=== PATIENT | male | born 1970 | race Caucasian/White ===

== ENCOUNTER 2019-04-21 05:16 | Day surgery (SDC) | payer OTHER ==
[~2019-04-21] VITALS: Ht 172.7 cm; Wt 73.0 kg
[2019-04-21 06:54] LABS: BASOPHILS 0.4 % (0-2); HEMOGLOBIN 13.5 g/dL (13.5-17.5); IMMATURE GRANULOCYTES 0.4 % (0-5); LYMPHOCYTES 34.5 % (15-50); MCH 29.7 pg (26.0-34.0); MCHC 34.6 g/dL (31.0-37.0); MCV 85.7 fL (80.0-100.0); MEAN PLATELET VOLUME 9.9 fL (7.4-10.4); MONOCYTES 10.8 % (2-11); NEUTROPHILS 51.9 % (40-80); PLATELET COUNT 156 10x3/uL (130-400); RBC 4.55 10x6/uL (4.20-6.10); RDW 12.9 % (11.5-14.5); WBC 5.1 10x3/uL (4.8-10.8)
[2019-04-21 07:05] LABS: ALBUMIN 3.7 g/dL (3.4-5.0); ALKALINE PHOSPHATASE 65 U/L (46-116); ALT (SGPT) 33 U/L (10-68); BILIRUBIN - TOTAL 0.53 mg/dL (0.2-1.3); CALC OSMOLALITY 283 mosm/kg (275-300); CALCIUM 8.9 mg/dL (8.5-10.1); CARBON DIOXIDE 27.6 mmol/L (21.0-32.0); CHLORIDE - SERUM 106 mmol/L (98-107); GLUCOSE 93 mg/dL (74-106); POTASSIUM - SERUM 4.1 mmol/L (3.5-5.1); SODIUM 141 mmol/L (136-145); UREA NITROGEN 21 mg/dL (7-18); eGFR NON AFRICAN AMERICAN 84 mL/min (90-120)
[2019-04-21 07:27] VITALS: BP 96/63; Ht 172.7 cm; Wt 73.0 kg
--- NOTE | 2019-04-21 11:11 | NUR ---
1100 IV REMOVED FROM RIGHT FOOT 1110 PT EATING FULL LIQ TRAY. MILD PAIN TO INCISION ON ABDOMEN
--- NOTE | 2019-04-21 12:43 | OP ---
PATIENT NAME: GEORGIE MCDUFFIE MEDICAL RECORD: [id number] :68 LOCATION:D.OPS ADMISSION DATE: SURGEON: PASTOR HARKINS MD DATE OF OPERATION: 04/21/2019 PREOPERATIVE DIAGNOSIS: Numerous subcutaneous lipomas. POSTOPERATIVE DIAGNOSIS: Numerous subcutaneous lipomas. Please see locations below. PROCEDURES: 1. Excision of four subcutaneous lipomas of the right upper extremity. 2. Excision of five subcutaneous lipomas of the left upper extremity. 3. Excision of one subcutaneous lipoma of the right back/flank. 4. Excision of subcutaneous lipoma of the right lower quadrant. 5. Excision of subcutaneous lipoma of the anterior mid chest. SURGEON: Pastor Harkins MD SYSTEM ADMIN: None. BLOOD LOSS: Minimal. ANESTHESIA: General. FINDINGS: In the holding area, the patient marked all the lipomas that he wanted removed. These are not the only lipomas that he has. These are the ones that have been causing him problems. I told him that others likely will need to be excised in the future. The risks, possible complications and alternatives to the procedure were explained to the patient. He elects to proceed. The discussion specifically included, but was not limited to, bleeding requiring emergency reoperation, infection, regrowth of the lipomas. OPERATIVE COURSE: The patient was conveyed to the operating room after the lipomas were marked. General anesthesia was induced by the anesthesia staff. The upper extremity lipomas were excised through axial incision. The other lipomas were excised through small incisions as well. In addition to the lipoma, surrounding connective tissue was excised in a piecemeal fashion. The skin incisions were closed with interrupted intracuticular 3-0 Vicryls. Benzoin and Steri-Strips were applied. The patient was then extubated and conveyed to post-anesthesia care unit where he was in stable condition. There was no need for him to follow up with me in the office unless he develops a complication related to this operative procedure. I can see him on rounds out of [facility] if there is a problem. TRANSINT:[id number] Voice Confirmation ID: [id number] DOCUMENT ID: [id number] cc: KIRT Saucedo, unknown OPERATIVE REPORT [id number] MCDUFFIEGEORGIE PIZARRO PASTOR HARKINS MD at 1243 CC: [id number] DICTATION DATE: 04/21/19 0958 SPECIALTY TRIMMER: 04/21/19 1115 [facility] 04/21/19 [facility] [address] [place] [address]
== END 2019-04-21 11:37 ==
LOC: D.OPS 05:16
PROVIDERS: Anesthesiology; ATTEND Surgery
DX: D17.22 Benign lipomatous neoplasm of skin and subcutaneous tissue of left arm (principal); D17.21 Benign lipomatous neoplasm of skin and subcutaneous tissue of right arm; Z01.812 Encounter for preprocedural laboratory examination